=== PATIENT | male | born 1985 | race African-American/Black ===

== ENCOUNTER 2018-07-07 13:33 | Emergency (ER) | payer MEDICAID ==
[~2018-07-07] VITALS: Ht 162.6 cm; Wt 80.3 kg
[2018-07-07 14:05] VITALS: Ht 162.6 cm; Wt 80.3 kg
[2018-07-07 17:22] LABS: CALCIUM 8.9 mg/dL (8.5-10.1); CARBON DIOXIDE 25.5 mmol/L (21-32); CHLORIDE SERUM 105 mmol/L (98-107); CREATININE SERUM 0.9 mg/dL (0.7-1.3); GFR1 > 60 mL/min; GLUCOSE SERUM 156 mg/dL (74-106); POTASSIUM SERUM 3.9 mmol/L (3.5-5.1); SODIUM SERUM 141 mmol/L (136-145)
[2018-07-07 17:26] LABS: ALBUMIN 4.2 g/dL (3.4-5.0); ALKALINE PHOSPHATASE 101 U/L (46-116); ALT/SGPT 20 U/L (16-63); AST/SGOT 13 U/L (15-37); TOTAL PROTEIN, SERUM 7.5 g/dL (6.4-8.2)
[2018-07-07 17:39] LABS: BASOPHIL % 0 % (0-2); PLATELET COUNT 416 x10^3mcL (130-400); RED CELL DISTRIBUTION WIDTH 20.5 % (11.5-14.5)
[2018-07-07 20:42] VITALS: BP 163/106
== END 2018-07-07 20:42 | disposition short-term general hospital (02) ==
LOC: ED 13:33
DX: D57.00 Hb-SS disease with crisis, unspecified (principal); I63.9 Cerebral infarction, unspecified; Z88.0 Allergy status to penicillin; Z88.8 Allergy status to other drugs, medicaments and biological substances; Z98.890 Other specified postprocedural states
CPT/HCPCS: J1200; J2001; J2270; J7030; Q0092